=== PATIENT | male | born 1935 | race Caucasian/White ===

== ENCOUNTER 2016-08-10 08:14 | Day surgery (SDC) | payer MEDICARE, MEDICAID ==
[~2016-08-10 08:14] MED LIST: FENTANYL 250 MCG/5 ML AMP IV PRN; LACTATED RINGERS 1,000 ML IV SCH; MIDAZOLAM HCL 5 MG/5 ML VIAL IV PRN
[2016-08-10] MEDS ORDERED: IV START KIT ONE (08:20)
--- NOTE | 2016-08-14 13:06 | SURGPATH ---
[facility] [address] [place] [id number] Patient Name: GERSON RENEE MR#: [id number] : 1935 Gender: M Specimen #: [id number] Collected: 08/10/2016 Received: 08/13/2016 Reported: 08/14/2016 Submitting Phys: TONI AVILA Copy To Phys: [facility] MONICA EISENBERG JOHN M Clinical History / Pre-Operative Diagnosis: History of colon polyps Specimen Source / Surgical Procedure Performed: Mid transverse colon polyp Interpretation: MID TRANSVERSE COLON, POLYP, BIOPSY: - TUBULAR ADENOMA Electronically Signed Out Varsha De La Torre M.D. Gross Description: The specimen is received in a formalin filled container labeled with the patient's name and "midtransverse colon polyp". Three holguin-desouza biopsy is are 0.3, 0.4 and 0.4 cm. Totally embedded in one cassette. Gunnar Kapadia, PBlankABlank Microscopic Description: Sections show fragments of adenomatous colonic mucosa without high grade dysplasia. 1: 52592 D12.3
== END 2016-08-10 09:50 | disposition home or self-care (01) ==
LOC: SDC 08:14
PROVIDERS: ATTEND Internal Medicine Gastroenterology
PROC: 0DBL8ZX Excision of Transverse Colon, Via Natural or Artificial Opening Endoscopic, Diagnostic (ICD-10-PCS; principal; 2016-08-10)
DX: D12.3 Benign neoplasm of transverse colon (principal); K57.30 Diverticulosis of large intestine without perforation or abscess without bleeding; E78.5 Hyperlipidemia, unspecified; M81.0 Age-related osteoporosis without current pathological fracture; G62.9 Polyneuropathy, unspecified; Z86.010 Personal history of colon polyps; Z79.899 Other long term (current) drug therapy; Z85.820 Personal history of malignant melanoma of skin; Z79.82 Long term (current) use of aspirin; Z87.891 Personal history of nicotine dependence; Z86.718 Personal history of other venous thrombosis and embolism; Z85.828 Personal history of other malignant neoplasm of skin; Z92.21 Personal history of antineoplastic chemotherapy; Z92.3 Personal history of irradiation; Z80.9 Family history of malignant neoplasm, unspecified; Z82.49 Family history of ischemic heart disease and other diseases of the circulatory system